=== PATIENT | female | born 1940 | race Caucasian/White ===

== ENCOUNTER 2016-09-20 06:39 | Day surgery (SDC) | payer MEDICARE, BC ==
[~2016-09-20 06:39] MED LIST: Brimonidine 0.2% Ophth Soln 5 ML Bottle ONE; Cataract Ophth Solution EYERT PRN; Hypromellose 2.5% Ophth Soln 15 ML Bottle EYERT PRN; Lactated Ringers 1,000 ML IV SCH; Lidocaine 1% 2 ML ONE; Lidocaine 3.5% Ophth Gel 1 ML Bottle ONE; Povidone-Iodine 5% Sterile Ophth Soln 30 ML Bottle ONE
[2016-09-20] MEDS: Proparacaine 0.5% Ophth Soln 15 ML Bottle EYERT PRN ×2 (07:24→08:41)
[2016-09-20] MEDS ORDERED: Lidocaine 1% PF 2 ML SDV INFILT ONE (08:42)
[2016-09-20] MEDS ORDERED: Chondroitin Sulfate/Hyaluronate Sodium Ophth Inj 0.5 ML Syringe IOCULAR ONE (08:45)
[2016-09-20] MEDS ORDERED: Ciprofloxacin 0.3% Ophth Soln 2.5 ML Bottle EYERT ONE (08:46)
[2016-09-20] MEDS ORDERED: Vancomycin 500 MG SDV EYERT ONE (08:47)
[2016-09-20] MEDS ORDERED: Balanced Salt Solution Ophth Irrig 500 ML Bottle IOCULAR ONE (08:48)
[2016-09-20 08:57] VITALS: BP 167/71
--- NOTE | 2016-09-20 12:15 | OR ---
PREOPERATIVE DIAGNOSIS: Senile nuclear cataract, right eye. POSTOPERATIVE DIAGNOSIS: Pseudophakia, right eye. PROCEDURE PERFORMED: Cataract extraction with intraocular lens implantation by phacoemulsification technique, right eye. ANESTHESIA: Topical anesthesia. ESTIMATED BLOOD LOSS: None. COMPLICATIONS: None. INDICATIONS: The patient is a 76-year-old female who was found to have a senile nuclear cataract, reducing her best corrected visual acuity. After explaining the risks, benefits, and alternatives of cataract surgery, an informed consent was obtained. DESCRIPTION OF PROCEDURE: After identifying the patient in the preoperative area, the patient was brought to the operating room. The patient was prepped and draped in a sterile fashion. A lid speculum was inserted into the eye. The microscope was brought into the field. Lidocaine gel was applied to the external surface of the eye. A paracentesis was made 3 clock hours away from the surgeon's operating hand. The anterior chamber was anesthetized with preservative-free Lidocaine. The anterior chamber was filled with Viscoat. A clear corneal incision was made at the 180-degree meridian with a 2.75mm keratome. A continuous tear circular capsulorrhexis was performed. The nucleus was hydrodissected with balanced salt solution. The nucleus was sculpted and removed from the eye using a divide and conquer technique with the phacoemulsification handpiece. The residual viscoelastic was removed with the I/A handpiece. The anterior chamber and capsular bag were filled with Amvisc. An CARLYN lens, model PCB00 with a power of 20.0 Diopters and a serial number of [id number] was injected into the capsular bag. The lens was rotated completely into the capsular bag with a Sinskey hook. The residual viscoelastic was removed with the I/A handpiece. The anterior chamber was filled with balanced salt solution to a physiologic pressure. The corneal wound was closed with stromal hydration and seen to be water tight by Weck-Sabrina sponge testing. The patient received a drop of Zymar and Alphagan at the end of the case. There were no complications of this case. The patient will be followed postoperatively by Dr. Claudia Grayson. SKA: 09/20/2016 08:54:36 MODL: 09/20/2016 12:07:13 /[id number]
== END 2016-09-20 09:10 | disposition home or self-care (01) ==
LOC: VM.SDS 06:39
PROVIDERS: ATTEND Ophthalmology
DX: H25.11 Age-related nuclear cataract, right eye (principal); Z96.1 Presence of intraocular lens; E11.9 Type 2 diabetes mellitus without complications; Z79.84 Long term (current) use of oral hypoglycemic drugs; Z79.899 Other long term (current) drug therapy; E78.5 Hyperlipidemia, unspecified; J45.909 Unspecified asthma, uncomplicated; E55.9 Vitamin D deficiency, unspecified
CPT/HCPCS: 00142; 66984; 82962; A9270; J3370; J7120; V2632

== ENCOUNTER 2016-10-18 07:57 | Day surgery (SDC) | payer MEDICARE, BC ==
[~2016-10-18 07:57] MED LIST changes: +Cataract Ophth Solution EYELF PRN; -Cataract Ophth Solution EYERT PRN; +Hypromellose 2.5% Ophth Soln 15 ML Bottle EYELF PRN; -Hypromellose 2.5% Ophth Soln 15 ML Bottle EYERT PRN; -Lactated Ringers 1,000 ML IV SCH; +Sodium Chloride 0.9% 10 ML Syringe FLUSH PRN
[2016-10-18] MEDS: Proparacaine 0.5% Ophth Soln 15 ML Bottle EYELF PRN ×2 (08:21→10:11)
[2016-10-18] MEDS ORDERED: Lidocaine 1% PF 2 ML SDV INJECT ONE (10:11)
[2016-10-18] MEDS ORDERED: Chondroitin Sulfate/Hyaluronate Sodium Ophth Inj 0.5 ML Syringe IOCULAR ONE (10:14)
[2016-10-18] MEDS ORDERED: Ciprofloxacin 0.3% Ophth Soln 2.5 ML Bottle EYELF ONE (10:15)
[2016-10-18] MEDS ORDERED: Vancomycin 500 MG SDV EYELF ONE (10:15)
[2016-10-18] MEDS ORDERED: Balanced Salt Solution Ophth Irrig 500 ML Bottle IOCULAR ONE (10:16)
[2016-10-18 10:30] VITALS: BP 113/68
--- NOTE | 2016-10-18 15:08 | OR ---
PREOPERATIVE DIAGNOSIS: Senile nuclear cataract, left eye. POSTOPERATIVE DIAGNOSIS: Pseudophakia, left eye. PROCEDURE PERFORMED: Cataract extraction with intraocular lens implantation by phacoemulsification technique left eye. ANESTHESIA: Topical anesthesia. ESTIMATED BLOOD LOSS: None. COMPLICATIONS: None. INDICATIONS: The patient is a 76-year-old female, who was found to have a senile nuclear cataract, reducing her best corrected visual acuity. After explaining the risks, benefits, and alternatives of cataract surgery, an informed consent was obtained. DESCRIPTION OF PROCEDURE: After identifying the patient in the preoperative area, the patient was brought to the operating room. The patient was prepped and draped in a sterile fashion. A lid speculum was inserted into the eye. The microscope was brought into the field. Lidocaine gel was applied to the external surface of the eye. A paracentesis was made 3 clock hours away from the surgeon's operating hand. The anterior chamber was anesthetized with preservative-free Lidocaine. The anterior chamber was filled with Viscoat. A clear corneal incision was made at the 180-degree meridian with a 2.75 mm keratome. A continuous tear circular capsulorrhexis was performed. The nucleus was hydrodissected with balanced salt solution. The nucleus was sculpted and removed from the eye using a divide and conquer technique with the phacoemulsification handpiece. The residual viscoelastic was removed with the I/A handpiece. The anterior chamber and capsular bag were filled with Amvisc. An CARLYN lens, model ZCB00 with a power of 20.0 diopters and a serial number of [id number] was injected into the capsular bag. The lens was rotated completely into the capsular bag with a Sinskey hook. The residual viscoelastic was removed with the I/A handpiece. The anterior chamber was filled with balanced salt solution to a physiologic pressure. The corneal wound was closed with stromal hydration and seen to be water tight by Weck-Sabrina sponge testing. The patient received a drop of Zymar and Alphagan at the end of the case. There were no complications of this case. The patient will be followed postoperatively by Dr. Clauida Grayson. SKA: 10/18/2016 11:09:08 MODL: 10/18/2016 15:01:19 /[id number]
== END 2016-10-18 11:00 | disposition home or self-care (01) ==
LOC: VM.SDS 07:57
PROVIDERS: ATTEND Ophthalmology
DX: Z96.1 Presence of intraocular lens (principal); K76.9 Liver disease, unspecified; I10 Essential (primary) hypertension; E11.9 Type 2 diabetes mellitus without complications; Z98.890 Other specified postprocedural states; E78.5 Hyperlipidemia, unspecified; E55.9 Vitamin D deficiency, unspecified; Z79.82 Long term (current) use of aspirin; Z79.84 Long term (current) use of oral hypoglycemic drugs; Z79.899 Other long term (current) drug therapy
CPT/HCPCS: 00142; 66984; 82962; A9270; J3370; C1780

== ENCOUNTER 2020-10-24 08:46 | Emergency (ER) | payer MEDICARE, BC ==
[2020-10-24 09:00] VITALS: BP 151/76; PULSE 118
--- NOTE | 2020-10-24 09:18 | EDM.PDOC ---
ED HPI GENERAL MEDICAL PROBLEM - General Chief Complaint: ENT Problem Stated Complaint: LEFT CHEEK PUFFY Time Seen by Provider: 10/24/20 09:02 Source of Information: Reports: Patient - History of Present Illness INITIAL COMMENTS - FREE TEXT/NARRATIVE: Trini is a 80 y/o female who comes to the ER with left sided cheek swelling. No fever. She noticed the swelling yesterday when she had some discomfort. She took Tylenol for pain. Denies any dental pain. - Related Data Allergies Allergy/AdvReac Type Severity Reaction Status Date / Time No Known Allergies Allergy Verified 10/24/20 09:03 Home Meds: Home Meds Aspirin [Halfprin] 81 mg PO DAILY 09/18/16 [History] Calcium Carbonate/Vitamin D3 [Caltrate 600 + D Soft Chew Tab] 1 tab PO BID 09/18/16 [History] Cholecalciferol (Vitamin D3) [Vitamin D3] 1,000 unit PO DAILY 09/18/16 [History] Ciprofloxacin [Ciloxan 0.3% Ophth Soln] 1 drop OP TID 09/18/16 [History] Clotrimazole/Betamethasone Dip [Lotrisone Cream] 1 applic TOP BID 09/18/16 [History] Enalapril/Hydrochlorothiazide [Enalapril-HCTZ 10-25 MG] 1 tab PO DAILY 09/18/16 [History] Fluocinonide [Lidex 0.05% Crm] 1 applic TOP BID 09/18/16 [History] Ketorolac [Acular 0.5% Ophth Soln] 1 drop OP TID 09/18/16 [History] Metoprolol Succinate [Toprol XL] 25 mg PO DAILY 09/18/16 [History] Raloxifene HCl [Evista] 60 mg PO DAILY 09/18/16 [History] atorvaSTATin [Lipitor] 5 mg PO DAILY 09/18/16 [History] glipiZIDE [Glipizide Xl] 5 mg PO DAILY 09/18/16 [History] metFORMIN [Glucophage] 500 mg PO BID 09/18/16 [History] prednisoLONE Acetate [Pred Forte 1% Ophth Susp] 1 drop OP TID 09/18/16 [History] Sulfamethoxazole/Trimethoprim [Bactrim Ds Tablet] 1 each PO BID #16 tablet 10/24/20 [Rx] Past Medical History HEENT History: Reports: Cataract Cardiovascular History: Reports: High Cholesterol, Hypertension, Other (See Below) Other Cardiovascular History: sinus tachycardia Respiratory History: Reports: Pneumonia, Recurrent, Other (See Below) Other Respiratory History: reactive airway disease Gastrointestinal History: Reports: Diverticulosis, Other (See Below) Other Gastrointestinal History: chronic liver disease nonalcoholic Genitourinary History: Reports: Other (See Below) Other Genitourinary History: kidney cysts [employer] History: Reports: Musculoskeletal History: Reports: Other (See Below) Other Musculoskeletal History: bone and cartilage disorder Neurological History: Reports: None Psychiatric History: Reports: None Endocrine/Metabolic History: Reports: Diabetes, Type II, Vitamin D Deficiency Hematologic History: Reports: None Immunologic History: Reports: None Oncologic (Cancer) History: Reports: None Dermatologic History: Reports: Eczema, Psoriasis, Other (See Below) Other Dermatologic History: back skin lesion - Past Surgical History Cardiovascular Surgical History: Reports: None GI Surgical History: Reports: Colonoscopy Female Surgical History: Reports: None Musculoskeletal Surgical History: Reports: None Dermatological Surgical History: Reports: None, Skin Biopsy Social & Family History - Tobacco Use Tobacco Use Status *Q: Never Tobacco User Review of Systems - Review of Systems Review Of Systems: See Below Constitutional: Reports: No Symptoms Eyes: Reports: No Symptoms Ears: Reports: No Symptoms Nose: Reports: No Symptoms Respiratory: Reports: No Symptoms Cardiovascular: Reports: No Symptoms GI/Abdominal: Reports: No Symptoms Genitourinary: Reports: No Symptoms Musculoskeletal: Reports: No Symptoms Skin: Reports: Other (Swelling/redeness to left cheek) Neurological: Reports: No Symptoms Psychiatric: Reports: No Symptoms ED EXAM, GENERAL - Physical Exam Exam: See Below Exam Limited By: No Limitations General Appearance: Alert, WD/WN, No Apparent Distress (Elderly female) Eye Exam: Bilateral Eye: PERRL Ears: Normal External Exam, Normal Canal, Hearing Grossly Normal, Normal TMs Nose: Normal Inspection, Normal Mucosa Throat/Mouth: Normal Lips, Normal Teeth, Normal Oropharynx, Normal Voice, Other (Note swelling and erythema to left cheek, teeth in godd repair) Neck: Normal Inspection, Supple, Non-Tender Respiratory/Chest: No Respiratory Distress, Lungs Clear, Chest Non-Tender Cardiovascular: Normal Peripheral Pulses, Regular Rate, Rhythm GI/Abdominal: Normal Bowel Sounds, Soft (Female) Exam: Deferred Rectal (Female) Exam: Deferred Back Exam: Normal Inspection Extremities: Normal Inspection, Normal Range of Motion, Normal Capillary Refill Neurological: Alert, Oriented, CN II-XII Intact, Normal Cognition Psychiatric: Normal Affect Skin Exam: Warm, Dry, Intact, Normal Color Course - Vital Signs Text/Narrative:: 09 The patient was seen by the [employer]. Labs ordered. 0945 Labs reviewed. Note WBC=10.8, diff neg. BMP neg. CRP=2.2. Will treat the Erysipelas with Vancomycin 1gm IVPB then start her on an oral course of Bactrim. Patient was given discharge instructions and remained stable until leaving the ER. Last Recorded V/S: Last Vital Signs Temp 36.3 C 10/24/20 08:50 Pulse 118 H 10/24/20 08:50 Resp 18 10/24/20 08:50 BP 151/76 H 10/24/20 08:50 Pulse Ox 94 L 10/24/20 08:50 - Orders/Labs/Meds Orders: Active Orders 24 hr Category Date Time Status Vancomycin 1 gm Med 10/24/20 09:39 Ordered Sodium Chloride 0.9% [Normal Saline (AdvBag)] 250 ml IV STAT Medication Orders Vancomycin HCl 1 gm/ Sodium (Chloride) 250 mls @ 250 mls/hr IV STAT ONE Stop: 10/24/20 10:38 Labs: Laboratory Tests 10/24/20 10/24/20 Range/Units 09:15 09:15 WBC 10.8 H (4.0-10.0) x10^3/uL RBC 4.30 (4.00-5.50) x10^6/uL Hgb 13.8 (12.0-16.0) g/dL Hct 41.0 (33.0-47.0) % MCV 95.3 H (78.0-93.0) fL MCH 32.1 H (26.0-32.0) pg MCHC 33.7 (32.0-36.0) g/dL RDW Coeff of Josie 12.5 (10.0-15.0) % Plt Count 269 (130-400) x10^3/uL Neut % (Auto) 69.6 (50.0-80.0) % Lymph % (Auto) 19.1 L (25.0-50.0) % [place] % (Auto) 9.7 (2.0-11.0) % Eos % (Auto) 1.3 (0.0-4.0) % Baso % (Auto) 0.3 (0.2-1.2) % Sodium 142 (136-145) mmol/L Potassium 3.7 (3.5-5.1) mmol/L Chloride 101 (98-107) mmol/L Carbon Dioxide 31 (21-32) mmol/L Anion Gap 13.7 (5-15) mmol/L BUN 16 (7-18) mg/dL Creatinine 1.0 (0.55-1.02) mg/dL Est Cr Clr Drug Dosing TNP Estimated GFR (MDRD) 53 Glucose 142 H (70-99) mg/dL Calcium 8.8 (8.5-10.1) mg/dL C-Reactive Protein 2.2 H (<=0.9) mg/dL Meds: Medications Generic Name Dose Route Start Last Admin Trade Name Freq PRN Reason Stop Dose Admin Vancomycin HCl 1 gm/ Sodium 250 mls @ 250 mls/hr 10/24/20 09:39 Chloride IV 10/24/20 10:38 STAT ONE Departure - Departure Time of Disposition: 09:44 Disposition: Home, Self-Care 01 Condition: Good Clinical Impression: Cellulitis of cheek - Discharge Information *PRESCRIPTION DRUG MONITORING PROGRAM REVIEWED*: No *COPY OF PRESCRIPTION DRUG MONITORING REPORT IN PATIENT GABRIEL: No Prescriptions: Sulfamethoxazole/Trimethoprim [Bactrim Ds Tablet] 1 each PO BID #16 tablet Instructions: Cellulitis, Adult Forms: ED Department Discharge Additional Instructions: -Bactrim DS 1 tablet oral 2x daily for 10 days #4(ER) #16 (Rx) -Use ibuprofen or acetaminophen as needed for pain -Apply warm packs to the left cheek region for comfort and to help decrease the swelling. -Make an appt to see Dr Ignacio by or Sunday for recheck, sooner if symptoms are not improving. -Return to the ER for any concerns of is you seem to be getting worse Sepsis Event Note (ED) - Evaluation Sepsis Screening Result: No Definite Risk - Focused Exam Vital Signs: Vital Signs Temp Pulse Resp BP Pulse Ox 10/24/20 08:50 36.3 C 118 H 18 151/76 H 94 L - My Orders Last 24 Hours: My Active Orders 10/24/20 09:39 Vancomycin 1 gm Sodium Chloride 0.9% [Normal Saline (AdvBag)] 250 ml IV STAT - Assessment/Plan Last 24 Hours: My Active Orders 10/24/20 09:39 Vancomycin 1 gm Sodium Chloride 0.9% [Normal Saline (AdvBag)] 250 ml IV STAT
[2020-10-24 09:31] LABS: ANION GAP 13.7 mmol/L (5-15); CHLORIDE,CL 101 mmol/L (98-107); SODIUM,NA 142 mmol/L (136-145)
[2020-10-24] MEDS ORDERED: Take Home: Sulfamethoxazole/Trimethoprim 800-160 MG Tab, 2 Tab Pack PO ONE (09:40)
== END 2020-10-24 11:02 | disposition home or self-care (01) ==
LOC: VM.ED 08:46
DX: L03.211 Cellulitis of face (principal); E78.00 Pure hypercholesterolemia, unspecified; I10 Essential (primary) hypertension; E11.9 Type 2 diabetes mellitus without complications; Z79.899 Other long term (current) drug therapy; Z79.84 Long term (current) use of oral hypoglycemic drugs; Z79.82 Long term (current) use of aspirin
CPT/HCPCS: 36415; 80048; 85025; 86140; 96365; 99283; 99283-25; A9270-GY; J3370; J7050